=== PATIENT | male | born 1965 | race Caucasian/White ===

== ENCOUNTER → 2021-02-18 | Emergency (ER) | payer OTHER ==
[~2021-02-18] VITALS: Ht 172.7 cm; Wt 97.5 kg
[~2021-02-18] MED LIST: AMLODIPINE-OLM1 EACH; ATACAND16 MG; CELEBREX200MG PO; CRESTOR20 MG; MEDROLPACK PO
== END | disposition home or self-care (01) ==
LOC: ER 13:09
DX: M17.11 Unilateral primary osteoarthritis, right knee (principal)